=== PATIENT | male | born 1965 | race African-American/Black ===

== ENCOUNTER 2017-08-12 14:45 | Emergency (ER) | payer BC ==
[~2017-08-12] VITALS: Ht 195.6 cm; Wt 81.8 kg
[2017-08-12 14:51] VITALS: BP 138/74; TEMP 97.9
[2017-08-12] MEDS ORDERED: PREDNISONE20 MG PO (15:42)
[2017-08-12] MEDS ORDERED: AMOXICILLIN 50500 MG PO (15:42)
[2017-08-12] MEDS ORDERED: EPIPEN 2-PAK1 MG/ML IM (15:42)
[2017-08-12 16:35] VITALS: PULSE 70
== END 2017-08-12 16:35 | disposition home or self-care (01) ==
LOC: COL.ER 14:45
DX: L25.9 Unspecified contact dermatitis, unspecified cause (principal); L50.9 Urticaria, unspecified
CPT/HCPCS: J7512